=== PATIENT | female | born 1950 | race Caucasian/White ===

== ENCOUNTER → 2017-02-06 | Outpatient (CLI) | payer BC ==
[~2017-02-06] MED LIST: ASPI-630 PO; BIOT0.5P MC; CITA20TA9 PO; DIPH25CA58 PO; FISH1CAP PO; LEVO100T PO; OMEP20CA9 PO; RANI75TA95 PO
--- NOTE | 2017-02-06 14:35 | KCIC ---
Two view chest Indication: Productive cough Findings: The heart size is normal. Pulmonary vasculature is within normal limits. There is no pleural effusion, consolidating infiltrate, or pneumothorax. Impression: No acute disease of the chest. Electronically signed by: Rob Graves MD (02/06/2017 2:32 PM)
== END | disposition home or self-care (01) ==
LOC: KCIC 13:47
PROVIDERS: ATTEND Physician Assistant
DX: R05 Cough (principal); Z87.891 Personal history of nicotine dependence
CPT/HCPCS: 71020

== ENCOUNTER → 2017-04-04 | Outpatient (CLI) | payer BC ==
--- NOTE | 2017-04-04 12:53 | KCIC ---
EXAM: Chest CT without intravenous contrast. HISTORY: Chronic cough. TECHNIQUE: Computed tomographic images of the chest were obtained without contrast. Multiplanar reformatting was performed. *One or more of the following individualized dose reduction techniques were utilized for this examination: 1. Automated exposure control. 2. Adjustment of the mA and/or kV according to patient size. 3. Use of iterative reconstruction technique. COMPARISON: Chest radiograph dated 02/06/2017. FINDINGS: There is no infiltrate, effusion or pneumothorax. There is a 4 mm pleural-based opacity within the posterior left lower lobe, consistent with subsegmental atelectasis. No suspicious pulmonary nodule is seen. The heart is normal in size. There is no pathologically enlarged lymph node. The liver appears upper normal in size. There are cholecystectomy clips. There is a suspected right extrarenal pelvis. There is a lipoma within the posterior right thorax paraspinal musculature, measuring approximately 11 cm in maximum dimension. No suspicious osseous lesion is seen. There is mild scoliosis. IMPRESSION: No acute pulmonary finding or suspicious pulmonary lesion. Electronically signed by: Jie Parmar MD (04/04/2017 12:50 PM) [facility]-KCIC1
== END | disposition home or self-care (01) ==
LOC: KCIC CT 11:47
PROVIDERS: ATTEND Physician Assistant
DX: R05 Cough (principal)
CPT/HCPCS: 71250

== ENCOUNTER → 2017-05-04 | Outpatient (CLI) | payer BC ==
--- NOTE | 2017-05-04 13:36 | KCIC ---
PELVIS W/TV History: Pelvic pain Comparison: None. Findings: Multiple transabdominal sonographic images of the pelvis are submitted. Pelvic structures are not well visualized. Transvaginal ultrasound: Multiple transvaginal sonographic images of the pelvis are submitted. Uterus measured 5.6 x 2.6 x 4 cm, associated calcifications and heterogeneity of the parenchyma. No free fluid is demonstrated. Neither ovary could be visualized due to bowel gas. Endometrium is estimated at 0.3 cm. Impression: 1. There is nonspecific heterogeneity as well as some scattered calcifications of the uterine parenchyma. Endometrium is within normal limits. Neither ovary could be visualized due to bowel gas. Electronically signed by: Casimiro Oconnell MD (05/04/2017 1:33 PM) [facility]-KCIC1
== END | disposition home or self-care (01) ==
LOC: KCIC US 12:45
PROVIDERS: ATTEND Obstetrics & Gynecology
DX: R10.2 Pelvic and perineal pain (principal)
CPT/HCPCS: 76830; 76856

== ENCOUNTER → 2018-05-07 | Outpatient (CLI) | payer BC ==
--- NOTE | 2018-05-07 16:20 | KCIC ---
Abdominal aortic ultrasound HISTORY: AAA screening. Smoking history. TECHNIQUE: Grayscale, color Doppler and spectral waveform analysis FINDINGS: Aorta is patent and ectatic. No evidence of aneurysmal dilatation. Visualized inferior vena cava is patent. Proximal right and left iliac arteries appear patent. IMPRESSION: No evidence of abdominal aortic aneurysm. Electronically signed by: Brain Fry MD (05/07/2018 4:17 PM) [facility]-KCIC2
== END | disposition home or self-care (01) ==
LOC: KCIC US 07:54
PROVIDERS: ATTEND Physician Assistant Medical
DX: Z13.6 Encounter for screening for cardiovascular disorders (principal); I77.819 Aortic ectasia, unspecified site; F17.210 Nicotine dependence, cigarettes, uncomplicated; K21.9 Gastro-esophageal reflux disease without esophagitis; I10 Essential (primary) hypertension; Z82.49 Family history of ischemic heart disease and other diseases of the circulatory system; Z90.89 Acquired absence of other organs; Z79.82 Long term (current) use of aspirin; Z88.2 Allergy status to sulfonamides
CPT/HCPCS: 76770

== ENCOUNTER → 2019-04-08 | Outpatient (CLI) | payer BC ==
[~2019-04-08] MED LIST changes: +OMEP20CA10 PO; -OMEP20CA9 PO; +RANI-348 PO; -RANI75TA95 PO
--- NOTE | 2019-04-08 11:53 | RAD ---
Examination: Ultrasound pelvis HISTORY: History of pelvic pain, discharge COMPARISON: 05/04/2017 FINDINGS: The uterus measures 6.4 x 3.8 x 2.6 cm. The endometrium measures 4.5 mm in thickness. The right ovary measures 2.7 x 1.5 x1.6 cm. The left ovary measures 2. 4 x1.5 x 1.1 cm. Blood flow identified in the right and left ovaries. Scattered calcifications identified in the uterus similar to prior exam. IMPRESSION: Unremarkable visualized exam. Scattered calcification is identified in the uterus similar to prior exam. Electronically signed by: Alfred Salas MD (04/08/2019 11:50 AM) [facility]-KCIC2
== END | disposition home or self-care (01) ==
LOC: US 10:49
PROVIDERS: ATTEND Obstetrics & Gynecology
DX: N85.8 Other specified noninflammatory disorders of uterus (principal)
CPT/HCPCS: 76856

== ENCOUNTER 2019-11-22 23:02 | Emergency (ER) | payer BC ==
[~2019-11-22] VITALS: Ht 167.6 cm; Wt 80.0 kg
[~2019-11-22 23:02] MED LIST changes: -OMEP20CA10 PO; +OMEP20CA16 PO; -RANI-348 PO; +RANI-369 PO
[2019-11-22] MEDS ORDERED: IV NORMAL SALINE 1000ML BAG 1,000 ML IV SCH (23:30)
--- NOTE | 2019-11-22 23:48 | RAD ---
PORTABLE CHEST 1V INDICATION: Chest pain. COMPARISON STUDY: 02/06/2017. FINDINGS: Lungs: Normal lung volume. No pulmonary mass or consolidation. The tracheobronchial tree and hilar structures are normal. Pleura: No pleural effusion or pneumothorax. Heart and Mediastinum: The cardiomediastinal silhouette is normal. The great vessels of the thorax are normal. IMPRESSION: No acute cardiopulmonary process. Electronically signed by: Casimiro Luz MD (11/22/2019 11:45 PM) [id number]
[2019-11-23 00:26] LABS: BASO % 1 % (0-3); EOS # 0.2 x10^3/uL (0.0-0.7); EOS % 2 % (0-3); HEMATOCRIT 40.4 % (36.0-47.0); HEMOGLOBIN 13.4 g/dL (12.0-15.5); LYMPH # 1.8 x10^3/uL (1.0-4.8); LYMPH % 24 % (24-48); MEAN CORPUSCULAR HEMOGLOBIN 28 pg (25-35); MEAN CORPUSCULAR HGB CONC 33 g/dL (31-37); MEAN CORPUSCULAR VOLUME 84 fL (79-100); MONO # 0.7 x10^3/uL (0.0-1.1); MONO % 10 % (0-9); NEUT # 4.6 x10^3/uL (1.8-7.7); NEUT % 63 % (31-73); PLATELET COUNT 237 x10^3/uL (140-400); RED BLOOD COUNT 4.81 x10^6/uL (3.50-5.40); RED CELL DISTRIBUTION WIDTH 15.1 % (11.5-14.5); WHITE BLOOD COUNT 7.3 x10^3/uL (4.0-11.0)
[2019-11-23 00:33] LABS: CALCIUM 9.9 mg/dL (8.5-10.1); CREATININE 0.8 mg/dL (0.6-1.0); GFR 70.9
--- NOTE | 2019-11-23 00:37 | PHYS DOC ---
Past Medical History Past Medical History: Depression, High Cholesterol, Hypothyroid Past Surgical History: Cholecystectomy Alcohol Use: Occasionally Drug Use: None Adult General Chief Complaint Chief Complaint: CHEST PAIN HPI HPI Patient is a 69 year old female who presents with complaint of chest discomfort for the last 2 days. Patient states that yesterday the chest pain had been quite severe and lasted for about a minute and then today pain has come back to the right side of her chest and has been intermittent, lasting a few seconds at a time. She denies any nausea, vomiting or diaphoresis. She denies any shortness of breath or fever.[] Review of Systems Review of Systems Constitutional: Denies fever or chills [] Respiratory: Denies cough or shortness of breath [] Cardiovascular: No additional information not addressed in HPI [] GI: Denies abdominal pain, nausea, vomiting or diarrhea [] Integument: Denies rash or skin lesions [] Neurologic: Denies headache, focal weakness or sensory changes [] All other systems were reviewed and found to be within normal limits, except as documented in this note. Current Medications Current Medications Current Medications Medications (Trade) Dose Ordered Sig/Alexander Start Time Stop Time Status Last Admin Dose Admin Sodium Chloride 1,000 ml @ 1,000 mls/hr Q1H 11/22/19 23:30 11/23/19 00:29 DC Allergies Allergies Allergies Coded Allergies Type Severity Reaction Last Updated Verified Sulfa (Sulfonamide Antibiotics) Allergy Intermediate Swelling, rash 11/26/13 Yes sucralfate Allergy Intermediate Rash 11/26/13 Yes Physical Exam Physical Exam Constitutional: Well developed, well nourished, no acute distress, non-toxic appearance. [] HENT: Normocephalic, atraumatic, bilateral external ears normal, oropharynx moist, no oral exudates, nose normal. [] Eyes: PERRLA, EOMI, conjunctiva normal, no discharge. [] Neck: Normal range of motion, no tenderness, supple. [] Cardiovascular: Regular rate and rhythm[] Lungs & Thorax: Bilateral breath sounds clear to auscultation [] Abdomen: Bowel sounds normal, soft, no tenderness. [] Skin: Warm, dry, no erythema, no rash. [] Extremities: No tenderness, no cyanosis, no clubbing, ROM intact. [] Neurologic: Alert and oriented X 3, no focal deficits noted. [] Current Patient Data Vital Signs Vital Signs Date Time Temp Pulse Resp B/P (MAP) Pulse Ox O2 Delivery O2 Flow Rate FiO2 11/22/19 23:02 99.8 78 20 183/88 (119) 96 Room Air 99.8 Lab Values Laboratory Tests Test 11/23/19 00:15 White Blood Count 7.3 x10^3/uL (4.0-11.0) Red Blood Count 4.81 x10^6/uL (3.50-5.40) Hemoglobin 13.4 g/dL (12.0-15.5) Hematocrit 40.4 % (36.0-47.0) Mean Corpuscular Volume 84 fL (79-100) Mean Corpuscular Hemoglobin 28 pg (25-35) Mean Corpuscular Hemoglobin Concent 33 g/dL (31-37) Red Cell Distribution Width 15.1 % (11.5-14.5) H Platelet Count 237 x10^3/uL (140-400) Neutrophils (%) (Auto) 63 % (31-73) Lymphocytes (%) (Auto) 24 % (24-48) Monocytes (%) (Auto) 10 % (0-9) H Eosinophils (%) (Auto) 2 % (0-3) Basophils (%) (Auto) 1 % (0-3) Neutrophils # (Auto) 4.6 x10^3/uL (1.8-7.7) Lymphocytes # (Auto) 1.8 x10^3/uL (1.0-4.8) Monocytes # (Auto) 0.7 x10^3/uL (0.0-1.1) Eosinophils # (Auto) 0.2 x10^3/uL (0.0-0.7) Basophils # (Auto) 0.0 x10^3/uL (0.0-0.2) Sodium Level 141 mmol/L (136-145) Potassium Level 4.0 mmol/L (3.5-5.1) Chloride Level 105 mmol/L (98-107) Carbon Dioxide Level 27 mmol/L (21-32) Anion Gap 9 (6-14) Blood Urea Nitrogen 10 mg/dL (7-20) Creatinine 0.8 mg/dL (0.6-1.0) Estimated GFR (Cockcroft-Gault) 70.9 BUN/Creatinine Ratio 13 (6-20) Glucose Level 102 mg/dL (70-99) H Calcium Level 9.9 mg/dL (8.5-10.1) Magnesium Level 2.1 mg/dL (1.8-2.4) Total Bilirubin 0.2 mg/dL (0.2-1.0) Aspartate Amino Transferase (AST) 17 U/L (15-37) Alanine Aminotransferase (ALT) 18 U/L (14-59) Alkaline Phosphatase 125 U/L (46-116) H Troponin I Quantitative < 0.017 ng/mL (0.000-0.055) ZM-Ibh-J-Type Natriuretic Peptide 75 pg/mL (0-124) Total Protein 6.5 g/dL (6.4-8.2) Albumin 3.5 g/dL (3.4-5.0) Albumin/Globulin Ratio 1.2 (1.0-1.7) Laboratory Tests 11/23/19 00:15 Laboratory Tests 11/23/19 00:15 EKG EKG EKG demonstrates normal sinus rhythm with rate of 79.[] Radiology/Procedures Radiology/Procedures [] Impressions: PROCEDURE: PORTABLE CHEST 1V PORTABLE CHEST 1V INDICATION: Chest pain. COMPARISON STUDY: 02/06/2017. FINDINGS: Lungs: Normal lung volume. No pulmonary mass or consolidation. The tracheobronchial tree and hilar structures are normal. Pleura: No pleural effusion or pneumothorax. Heart and Mediastinum: The cardiomediastinal silhouette is normal. The great vessels of the thorax are normal. IMPRESSION: No acute cardiopulmonary process. Electronically signed by: Casimiro Luz MD (11/22/2019 11:45 PM) [id number] Course & Med Decision Making Course & Med Decision Making Pertinent Labs and Imaging studies reviewed. (See chart for details) [] Dragon Disclaimer Dragon Disclaimer This electronic medical record was generated, in whole or in part, using a voice recognition dictation system. Departure Departure Impression: Primary Impression: Atypical chest pain Disposition: 01 HOME, SELF-CARE Condition: STABLE Referrals: CHIN ANGEL MD (PCP) Patient Instructions: Chest Pain (Nonspecific) ENRIQUETA DUARTE Jr. DO Nov 23, 2019 00:37
[2019-11-23 00:39] LABS: ALBUMIN 3.5 g/dL (3.4-5.0); ALBUMIN/GLOBULIN RATIO 1.2 (1.0-1.7); MAGNESIUM 2.1 mg/dL (1.8-2.4); TOTAL BILIRUBIN 0.2 mg/dL (0.2-1.0); TOTAL PROTEIN 6.5 g/dL (6.4-8.2)
[2019-11-23 00:50] VITALS: BP 138/75
--- NOTE | 2019-11-23 05:50 | EKG ---
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
== END 2019-11-23 01:25 | disposition home or self-care (01) ==
LOC: ER 23:02
DX: R07.89 Other chest pain (principal); E78.00 Pure hypercholesterolemia, unspecified; F32.9 Major depressive disorder, single episode, unspecified; E03.9 Hypothyroidism, unspecified; Z90.49 Acquired absence of other specified parts of digestive tract; Z88.2 Allergy status to sulfonamides; Z88.8 Allergy status to other drugs, medicaments and biological substances
CPT/HCPCS: 36415; 71045; 80053; 83735; 83880; 84484; 85025; 93005; 99285

== ENCOUNTER → 2021-10-28 | Outpatient (CLI) | payer BC ==
[2021-08-24 10:16] VITALS: BP 167/85
[~2021-10-28] MED LIST changes: +ASPI-886 PO; +DULO60CA45 PO; +FLUT16SP NS; +LACT1CAP37 PO; +LEVO-101 PO; -LEVO100T PO; +LEVO75TA5 PO; +OMEP40CA7 PO; +PIRO10CA2 PO; +PRAV10TA2 PO; +TIZA-75 PO
--- NOTE | 2021-10-28 17:17 | KCIC ---
US EXT NON VASC RIGHT History:Reason: Mass Mid Right back next to spine / Spl. Instructions: / History: Comparison: CT April 04, 2017 Technique: Sonographic examination of the right mid back Findings: Heterogeneous encapsulated hypoechoic lesion within the right mid back along the musculature in measu res 13.3 x 8.5 x 3.6 cm. Difficult to compare to prior given differences in technique and large size of the mass. Impression: 1. Heterogeneous encapsulated predominantly hypoechoic lesion within the right mid back along the mu sculature, compatible with lipoma as seen on prior CT. Electronically signed by: Devendra Rodrigues DO (10/28/2021 5:14 PM) [id number]
== END ==
LOC: KCIC US 13:13
PROVIDERS: ATTEND Surgery
DX: R22.2 Localized swelling, mass and lump, trunk (principal)
CPT/HCPCS: 76881

== ENCOUNTER 2021-11-04 08:28 | Day surgery (SDC) | payer BC ==
[~2021-11-04] VITALS: Ht 167.6 cm; Wt 88.0 kg
[~2021-11-04 08:28] MED LIST changes: +BUPIVACAINE-EPI 0.25%-1:200000 MPF 30 ML VIAL. ONE; +HYDROmorphone 2 MG/ML INJ. IVP PRN; +IV RINGERS,LACTATED 1000ML 1,000 ML IV SCH; +MORPHINE SULFATE 2 MG/ML INJ. IVP PRN; +OLME20TA17 PO; +PROCHLORPERAZINE 10 MG/2 ML VIAL. IVP PRN; +fentaNYL PF VIAL 100 MCG/2 ML VIAL IVP PRN
[2021-11-04] MEDS ORDERED: PROPOFOL 10 MG/ML (20ML) VIAL. IV ONE (08:55)
[2021-11-04] MEDS ORDERED: ONDANSETRON PF 4 MG/2 ML VIAL. ONE (08:55)
[2021-11-04] MEDS ORDERED: DEXAMETHASONE SOD PHOS 4 MG/ML VIAL ONE (08:55)
[2021-11-04] MEDS ORDERED: LIDOCAINE 1% PF 5 ML VIAL. ONE (08:55)
[2021-11-04] MEDS ORDERED: fentaNYL PF VIAL 100 MCG/2 ML VIAL ONE ×2 (08:56→11:07)
[2021-11-04] MEDS ORDERED: ROCURONIUM 50 MG/5 ML VIAL. ONE (09:29)
[2021-11-04] MEDS ORDERED: SUGAMMADEX SODIUM 200 MG/2 ML VIAL. IVP ONE (09:45)
[2021-11-04] MEDS ORDERED: GLYCOPYRROLATE 1 MG/5 ML VIAL. ONE (10:20)
--- NOTE | 2021-11-04 10:34 | PDOC4 ---
Operative Note Operative Note Operative Note: Preoperative Diagnosis: Back mass, left upper back skin lesion x2 Postoperative Diagnosis: Same Procedure: Excision of back mass, intramuscular 14 X 7 cm, excision of left upper back skin lesion x2, 2 X 1 cm each Surgeon: Vasiliy Drum Stock Clerk: LUC Torres Anesthesia: General EBL: 10 mL Specimen: Back mass, left back skin lesion x2 to pathology Drains: None Complications: None Indication: The patient is a 71-year-old female presented with a sizable intramuscular mass of the mid back to the right of midline. 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 In addition she has 2 upper back skin lesions on the left side which are bothersome. She requests excision of these. The risks of surgery were discussed which include bleeding, infection, recurrence, pain, anesthetic risk, potential need for additional surgery procedure. She understands and would like to proceed. Description: The patient was taken the operating room and placed supine in the operating table. General anesthesia was performed. The back was prepped with ChloraPrep and draped in a standard surgical manner. An incision was made overlying the mid larger back mass which was to the right of midline. Cautery dissection was carried down through subcutaneous tissue. The muscular fascia was opened exposing a sizable lipoma. With primarily blunt and cautery dissection the lipoma was able to be shelled out and excised. The mass measured 14 x 7 cm and was sent to pathology for evaluation. A few small bleeding spots were controlled with cautery. The muscle fascia was reapproximated with 3-0 Vicryl. The subcutaneous tissue was approximated with 3-0 Vicryl. The skin was closed with 4 Monocryl. Elliptical incisions were made around the skin lesions of the left upper back which were fairly small. Sharp dissection was used for full-thickness excision of the skin. Both were sent to pathology and both measured 2 x 1 cm. The skin at both was approximated with 4 Monocryl. Sterile dressings were applied. The patient tolerated the procedure well and was sent to the recovery room in stable condition. At the end of the case all counts were correct. DERREK LOW MD Nov 04, 2021 10:34
[2021-11-04] MEDS ORDERED: HYDR-2761 PO (10:37)
--- NOTE | 2021-11-04 10:39 | DISCH ---
DISCHARGE INSTRUCTIONS Condition on Discharge Condition on Discharge: Stable Activity After Discharge Activity Instructions for Disc: Activity as tolerated Diet after Discharge Diet after Discharge: Regular Wound Incision Care Wound/Incision Care: Other, see below (Keep dressing clean and dry X 72 hours, may then remove and shower) Follow-Up Follow up with: Dr Low in office in 2 weeks, call for appt [phone] DERREK LOW MD Nov 04, 2021 10:39
[2021-11-04] MEDS: fentaNYL PF VIAL 100 MCG/2 ML VIAL IVP PRN ×2 (11:09→11:18)
[2021-11-04] MEDS ORDERED: HYDROcodone/APAP 5/325MG 1 TAB TABLET PO ONE (11:30)
[2021-11-04 11:50] VITALS: BP 153/77
--- NOTE | 2021-11-05 15:08 | PATHOLOGY ---
[facility] Accession Number: [id number] . 01 Material submitted: . PART A: back - BACK MASS PART B: back - UPPER BACK CYST X2. Modifiers: upper . 02 Diagnosis: A. Segment of fibroadipose tissue, back mass excision: - Lipoma, clinically intramuscular. . B. Segments (2) of skin and subcutaneous tissue, upper back skin lesion x2 excision: - Intradermal melanocytic nevus (1), excised. - Dermal fibrosis and mild superficial perivascular chronic inflammation of skin (1). . (JPM/db; 11/05/2021) LBQ 11/05/2021 1449 Local . 02 Comment: Sections of the back mass excision reveal a large lipoma. No skeletal muscle tissue is identified in the sections examined. . 02 Electronically signed: . Sreekanth Clarke MD, Pathologist NPI- [id number] . 01 Gross description: . A. Fixative: Formalin Labeled: Back mass Specimen received: Irregularly shaped, light britt-yellow, smooth to shaggy, and multilobulated adipose tissue Dimensions: 12.9 x 8.5 x 2.0 cm External surface: See above The surgical margin is inked green Cut surface: Light birtt-yellow and lobulated to focally hemorrhagic cut surfaces . Air Conditioning Installer Supervisor sections are submitted in A1 to A7. . B. Received in formalin labeled "Carolina Rivas, upper back cyst X2" is an unoriented ellipse of skin measuring 1.4 x 0.7 x 0.4 cm. The skin surface displays a poorly defined, raised, and light britt lesion measuring 0.2 x 0.2 x 0.1 and 0.2 cm from the nearest margin. The margin is inked green and the specimen is sectioned into 7 pieces. Sectioning reveals pale britt and solid cut surfaces The specimen is submitted entirely in B1 to B2, with the tips in the last cassette. . Also received within the specimen container is an unoriented ellipse of skin measuring 1.1 x 0.4 x 0.6 cm in greatest dimensions. The epidermal surface displays a poorly defined, raised, and light britt lesion measuring 0.3 x 0.3 x 0.1 cm. The surgical margin is inked black. Sectioning reveals pale britt and solid cut surfaces. The specimen is sectioned into 6 pieces and submitted in cassettes D3-D4, with the tips in the last cassette.([facility]; 11/04/2021) [facility] 11/04/2021 1642 Local . 02 Pathologist provided ICD-10: D17.1, D22.5 . 02 CPT . 886622, 117251 Specimen Comment: A courtesy copy of this report has been sent to [phone], [phone] Specimen Comment: [id number] Specimen Comment: Report sent to / DR ANGEL Specimen Comment: A duplicate report has been generated due to demographic updates. Performed at: 01 [facility] [address], [place] [id number] MD Bimal Carvalho MD Phone: [phone] Performed at: 02 [facility] [address] [place], [place] [id number] MD Sreekanth Clarke MD Phone: [phone]
== END 2021-11-04 12:15 | disposition home or self-care (01) ==
LOC: SURG 08:28
PROVIDERS: ATTEND Surgery
DX: D17.1 Benign lipomatous neoplasm of skin and subcutaneous tissue of trunk (principal); D22.5 Melanocytic nevi of trunk; I10 Essential (primary) hypertension; E78.00 Pure hypercholesterolemia, unspecified; E03.9 Hypothyroidism, unspecified; G47.30 Sleep apnea, unspecified; F41.9 Anxiety disorder, unspecified; F32.9 Major depressive disorder, single episode, unspecified; E66.9 Obesity, unspecified; K21.9 Gastro-esophageal reflux disease without esophagitis; Z87.891 Personal history of nicotine dependence; Z79.82 Long term (current) use of aspirin; Z79.899 Other long term (current) drug therapy; Z90.49 Acquired absence of other specified parts of digestive tract; Z98.890 Other specified postprocedural states; Z86.73 Personal history of transient ischemic attack (TIA), and cerebral infarction without residual deficits; Z88.2 Allergy status to sulfonamides; Z88.8 Allergy status to other drugs, medicaments and biological substances
CPT/HCPCS: 21933; A4364; A4930; J0690; J1100; J2405; J2704; J3010; J3490; A4452